=== PATIENT | male | born 1980 | race Two or more races ===

== ENCOUNTER 2020-11-03 17:25 | Inpatient (IN) | payer MEDICAID, OTHER ==
[~2020-11-03] VITALS: Ht 175.3 cm; Wt 140.6 kg
[2020-11-03 19:28] LABS: BASOPHILS % (AUTO) 0.8 % (0.0-2.0); HEMATOCRIT 45.9 % (41-53); HEMOGLOBIN 15.5 g/dL (13.5-17.5); LYMPHOCYTES # (AUTO) 5.9 K/uL (1.0-4.8); LYMPHOCYTES % (AUTO) 54.9 % (22.0-44.0); MEAN CORPUSCULAR HEMOGLOBIN 28.7 pg (26.0-34.0); MEAN CORPUSCULAR HGB CONC 33.7 G/dL (31.0-37.0); MEAN CORPUSCULAR VOLUME 85 fL (80-100); MONOCYTES # (AUTO) 0.6 K/uL (0.1-1.0); MONOCYTES % (AUTO) 5.4 % (2.0-9.0); NEUTROPHILS # (AUTO) 4.1 K/uL (1.8-7.7); PLATELET COUNT (AUTO) 265 K/uL (150-450); RED CELL DISTRIBUTION WIDTH 16.1 % (11.5-14.5)
[2020-11-03 19:40] LABS: ANION GAP 14 mmol/L (8-16); CALCIUM, TOTAL 8.6 mg/dL (8.8-10.5); CARBON DIOXIDE 26 mmol/L (22-29); CHLORIDE 106 mmol/L (98-107); CREATININE 0.74 mg/dL (0.60-1.30); GLOMERULAR FILTR. RATE CALC > 60 mL/min (>60); GLUCOSE,RANDOM 112 mg/dL (70-110); POTASSIUM 3.4 mmol/L (3.5-5.1); SODIUM SERUM 146 mmol/L (136-145); UREA NITROGEN, BLOOD 9 mg/dL (7-18)
[2020-11-03 19:46] LABS: ALANINE AMINOTRANSFERASE 48 U/L (12-78); ALBUMIN 4.2 g/dL (3.4-5.0); ALKALINE PHOSPHATASE 124 U/L (46-116); ASPARTATE AMINOTRANSFERASE 31 U/L (15-37); BILIRUBIN,TOTAL 0.3 mg/dL (0.1-1.0); TOTAL PROTEIN, SERUM 8.5 g/dL (6.4-8.2)
[2020-11-03 20:36] LABS: NEUTROPHILS % (AUTO) 37.9 % (40.0-70.0)
[2020-11-03] MEDS: QUEtiapine FUMARATE 100 MG TABLET PO PRN (23:15)
[2020-11-03] MEDS: LORazepam 2 MG TABLET PO PRN (23:15)
[2020-11-03 23:36] LABS: COVID AG,FIA SOURCE NASOPHARYNGEAL
[2020-11-04] VITALS (7 sets, daily range): BP systolic 130–150; BP diastolic 72–88
[2020-11-04] MEDS ORDERED: INFLUENZA VIRUS VACCINE QVS 2020-21 (6MO+)/PF 60 MCG/0.5 ML SYRINGE IM ONE (01:15)
[2020-11-04] MEDS ORDERED: ONDANSETRON HCL 4 MG TABLET PO PRN (07:30)
[2020-11-04] MEDS ORDERED: ACETAMINOPHEN 325 MG TABLET PO PRN (07:30)
[2020-11-04] MEDS ORDERED: ALBUTEROL SULFATE HFA 90 MCG/PUFF 8 GM INHALER IH PRN (07:30)
[2020-11-04] MEDS ORDERED: GuaiFENesin/D-METHORPHAN [SUGAR-FREE] 200-20MG/10 ML SYRUP UDCUP PO PRN (07:30)
[2020-11-04] MEDS ORDERED: NICOTINE 14 MG/24 HOUR PATCH TD PRN (07:30)
[2020-11-04] MEDS ORDERED: CloNIDine HCL 0.1 MG TABLET PO PRN (07:30)
[2020-11-04] MEDS ORDERED: MAGNESIUM HYDROXIDE SUSPENSION 30 ML UDCUP PO PRN (07:30)
[2020-11-04] MEDS ORDERED: PETROLATUM,WHITE 28 GM JELLY TP PRN (07:30)
[2020-11-04] MEDS ORDERED: DOCUSATE SODIUM 100 MG CAPSULE PO PRN (07:30)
[2020-11-04] MEDS ORDERED: LOPERAMIDE HCL 2 MG CAPSULE PO PRN (07:30)
[2020-11-04 08:31] LABS: CHOL/HDL RATIO 3.5 (4.2-7.3)
[2020-11-04] MEDS: LORazepam 2 MG TABLET PO PRN ×4 (09:21→20:11)
[2020-11-04] MEDS ORDERED: QUET300T18 PO (09:27)
[2020-11-04] MEDS ORDERED: QUET50TA22 PO (09:27)
[2020-11-04] MEDS ORDERED: ESCI20TA37 PO (09:27)
[2020-11-04] MEDS ORDERED: ESCITALOPRAM OXALATE 20 MG TABLET PO SCH (09:30)
[2020-11-04] MEDS ORDERED: CYANOCOBALAMIN 1,000 MCG/ML VIAL IM ONE (09:30)
[2020-11-04] MEDS: MULTIVITAMINS WITH MINERALS, THERAPEUTIC TABLET PO SCH (09:45)
[2020-11-04] MEDS: THIAMINE 100 MG TABLET PO SCH ×2 (09:45→15:57)
[2020-11-04] MEDS: ESCITALOPRAM OXALATE 20 MG TABLET PO SCH (09:45)
[2020-11-04] MEDS: FOLIC ACID 1 MG TABLET PO SCH (09:45)
[2020-11-04] MEDS: QUEtiapine FUMARATE 300 MG TABLET PO SCH (20:11)
[2020-11-05] VITALS (8 sets, daily range): BP systolic 118–146; BP diastolic 69–100
[2020-11-05 07:46] LABS: MAGNESIUM 1.9 mg/dL (1.80-2.40); PHOSPHORUS 3.3 mg/dL (2.5-4.9)
[2020-11-05] MEDS: ESCITALOPRAM OXALATE 20 MG TABLET PO SCH (08:12)
[2020-11-05] MEDS: MULTIVITAMINS WITH MINERALS, THERAPEUTIC TABLET PO SCH (08:12)
[2020-11-05] MEDS: FOLIC ACID 1 MG TABLET PO SCH (08:12)
[2020-11-05] MEDS: LORazepam 2 MG TABLET PO SCH ×4 (08:12→20:23)
[2020-11-05] MEDS: THIAMINE 100 MG TABLET PO SCH ×2 (08:12→16:08)
[2020-11-05] MEDS: QUEtiapine FUMARATE 100 MG TABLET PO PRN (12:14)
[2020-11-05] MEDS: IBUPROFEN 400 MG TABLET PO PRN (12:16)
[2020-11-05] MEDS: GABAPENTIN 300 MG CAPSULE PO SCH ×2 (12:29→16:08)
[2020-11-05] MEDS: QUEtiapine FUMARATE 300 MG TABLET PO SCH (20:23)
[2020-11-05] MEDS: ZOLPIDEM TARTRATE 10 MG TABLET PO PRN (22:27)
[2020-11-06] VITALS (7 sets, daily range): BP systolic 120–133; BP diastolic 75–82
[2020-11-06] MEDS: LORazepam 2 MG TABLET PO PRN (03:40)
[2020-11-06] MEDS: MULTIVITAMINS WITH MINERALS, THERAPEUTIC TABLET PO SCH (08:04)
[2020-11-06] MEDS: GABAPENTIN 300 MG CAPSULE PO SCH ×3 (08:04→16:17)
[2020-11-06] MEDS: FOLIC ACID 1 MG TABLET PO SCH (08:05)
[2020-11-06] MEDS: LORazepam 2 MG TABLET PO SCH ×4 (08:05→20:33)
[2020-11-06] MEDS: QUEtiapine FUMARATE 25 MG TABLET PO SCH ×2 (08:05→16:18)
[2020-11-06] MEDS: ESCITALOPRAM OXALATE 20 MG TABLET PO SCH (09:00)
[2020-11-06] MEDS: THIAMINE 100 MG TABLET PO SCH ×2 (09:00→16:17)
[2020-11-06] MEDS: IBUPROFEN 400 MG TABLET PO PRN (13:11)
[2020-11-06] MEDS: QUEtiapine FUMARATE 300 MG TABLET PO SCH (20:33)
[2020-11-06] MEDS: ZOLPIDEM TARTRATE 10 MG TABLET PO PRN (21:44)
[2020-11-07] MEDS: LORazepam 2 MG TABLET PO PRN ×2 (00:25→03:12)
[2020-11-07 00:39] VITALS: BP 130/81
[2020-11-07 00:41] VITALS: BP 130/81
[2020-11-07] MEDS: IBUPROFEN 400 MG TABLET PO PRN (03:12)
[2020-11-07 03:15] VITALS: BP 135/84
[2020-11-07 08:13] VITALS: BP 139/79
[2020-11-07] MEDS: THIAMINE 100 MG TABLET PO SCH ×2 (08:21→16:07)
[2020-11-07] MEDS: MULTIVITAMINS WITH MINERALS, THERAPEUTIC TABLET PO SCH (08:21)
[2020-11-07] MEDS: FOLIC ACID 1 MG TABLET PO SCH (08:21)
[2020-11-07] MEDS: ESCITALOPRAM OXALATE 20 MG TABLET PO SCH (08:22)
[2020-11-07] MEDS: QUEtiapine FUMARATE 25 MG TABLET PO SCH ×2 (08:22→16:08)
[2020-11-07] MEDS: GABAPENTIN 300 MG CAPSULE PO SCH ×3 (08:22→16:08)
[2020-11-07] MEDS: LORazepam 1 MG TABLET PO SCH ×4 (08:26→20:25)
[2020-11-07 16:00] VITALS: BP 134/82
[2020-11-07] MEDS: LORazepam 1 MG TABLET PO PRN (19:08)
[2020-11-07] MEDS: QUEtiapine FUMARATE 300 MG TABLET PO SCH (20:25)
[2020-11-07] MEDS: ZOLPIDEM TARTRATE 10 MG TABLET PO PRN (20:25)
[2020-11-07] MEDS: MAG HYDROX/AL HYDROX/SIMETH ES 30 ML SUSPENSION UDCUP PO PRN (20:53)
[2020-11-07] MEDS: QUEtiapine FUMARATE 100 MG TABLET PO PRN (23:34)
[2020-11-08] MEDS: LORazepam 1 MG TABLET PO PRN ×4 (05:12→20:39)
[2020-11-08 05:26] VITALS: BP 121/77
[2020-11-08 05:46] VITALS: BP 121/77
[2020-11-08 06:29] LABS: BASOPHILS % (AUTO) 0.9 % (0.0-2.0); HEMOGLOBIN 13.5 g/dL (13.5-17.5); LYMPHOCYTES # (AUTO) 2.4 K/uL (1.0-4.8); LYMPHOCYTES % (AUTO) 35.1 % (22.0-44.0); MEAN CORPUSCULAR HEMOGLOBIN 29.9 pg (26.0-34.0); MEAN CORPUSCULAR HGB CONC 34.6 G/dL (31.0-37.0); MEAN CORPUSCULAR VOLUME 86 fL (80-100); MONOCYTES # (AUTO) 0.4 K/uL (0.1-1.0); MONOCYTES % (AUTO) 6.2 % (2.0-9.0); NEUTROPHILS # (AUTO) 3.5 K/uL (1.8-7.7); NEUTROPHILS % (AUTO) 51.8 % (40.0-70.0); PLATELET COUNT (AUTO) 142 K/uL (150-450); RED BLOOD CELL COUNT(AUTO) 4.51 MIL/uL (4.50-5.90); RED CELL DISTRIBUTION WIDTH 15.7 % (11.5-14.5)
[2020-11-08 08:30] VITALS: BP 113/73
[2020-11-08] MEDS: IBUPROFEN 400 MG TABLET PO PRN ×2 (08:36→16:38)
[2020-11-08] MEDS: MULTIVITAMINS WITH MINERALS, THERAPEUTIC TABLET PO SCH (08:36)
[2020-11-08] MEDS: QUEtiapine FUMARATE 25 MG TABLET PO SCH ×2 (08:36→16:37)
[2020-11-08] MEDS: FOLIC ACID 1 MG TABLET PO SCH (08:36)
[2020-11-08] MEDS: THIAMINE 100 MG TABLET PO SCH ×2 (08:37→16:37)
[2020-11-08] MEDS: ESCITALOPRAM OXALATE 20 MG TABLET PO SCH (08:38)
[2020-11-08] MEDS: GABAPENTIN 300 MG CAPSULE PO SCH ×3 (08:40→16:37)
[2020-11-08 12:39] LABS: COVID AG,FIA SOURCE NASAL SWAB
[2020-11-08] MEDS: QUEtiapine FUMARATE 100 MG TABLET PO PRN (13:39)
[2020-11-08 17:29] VITALS: BP 103/64
[2020-11-08 17:41] VITALS: BP 103/64
[2020-11-08] MEDS: MAG HYDROX/AL HYDROX/SIMETH ES 30 ML SUSPENSION UDCUP PO PRN (19:56)
[2020-11-08] MEDS: ZOLPIDEM TARTRATE 10 MG TABLET PO PRN (20:39)
[2020-11-08] MEDS: QUEtiapine FUMARATE 300 MG TABLET PO SCH (20:43)
[2020-11-09 00:36] VITALS: BP 121/87
[2020-11-09 00:41] VITALS: BP 121/87
[2020-11-09] MEDS: IBUPROFEN 400 MG TABLET PO PRN (00:57)
[2020-11-09] MEDS: LORazepam 1 MG TABLET PO PRN (00:57)
[2020-11-09] MEDS: GABAPENTIN 300 MG CAPSULE PO SCH ×2 (08:01→12:43)
[2020-11-09] MEDS: MULTIVITAMINS WITH MINERALS, THERAPEUTIC TABLET PO SCH (08:01)
[2020-11-09] MEDS: ESCITALOPRAM OXALATE 20 MG TABLET PO SCH (08:01)
[2020-11-09] MEDS: THIAMINE 100 MG TABLET PO SCH (08:01)
[2020-11-09] MEDS: FOLIC ACID 1 MG TABLET PO SCH (08:01)
[2020-11-09] MEDS: QUEtiapine FUMARATE 25 MG TABLET PO SCH (08:01)
[2020-11-09 08:33] VITALS: BP 124/72
[2020-11-09] MEDS: QUEtiapine FUMARATE 100 MG TABLET PO PRN (09:23)
[2020-11-09] MEDS ORDERED: ESCI20TA87 PO (10:59)
[2020-11-09] MEDS ORDERED: QUET300T18 PO (10:59)
[2020-11-09] MEDS ORDERED: QUET25TA34 PO (10:59)
[2020-11-09] MEDS ORDERED: GABA-1181 PO (11:57)
[2020-11-09] MEDS ORDERED: MULT-1239 PO (11:57)
== END 2020-11-09 13:40 | disposition home or self-care (01) | DRG 753 ==
LOC: EMS 17:30 → 3EC 20:00
DX: F31.4 Bipolar disorder, current episode depressed, severe, without psychotic features (principal); F43.12 Post-traumatic stress disorder, chronic; F10.20 Alcohol dependence, uncomplicated; I10 Essential (primary) hypertension; E78.5 Hyperlipidemia, unspecified; E87.0 Hyperosmolality and hypernatremia; Z20.822 Contact with and (suspected) exposure to COVID-19; E87.6 Hypokalemia; R45.851 Suicidal ideations; Y90.8 Blood alcohol level of 240 mg/100 ml or more; Z79.899 Other long term (current) drug therapy; Z83.3 Family history of diabetes mellitus; Z28.21 Immunization not carried out because of patient refusal
CPT/HCPCS: 83735; 84100; 87426; 99285; G0480; J3420